=== PATIENT | female | born 1985 | race Caucasian/White ===

== ENCOUNTER 2016-07-28 00:18 | Inpatient (IN) | payer OTHER ==
[2016-07-28] MEDS ORDERED: Ampicillin 2 GM in Sodium Chloride 0.9% 100 ML IV ONE (01:05)
[2016-07-28] MEDS ORDERED: Sodium Chloride 0.9% 10 ML Syringe FLUSH PRN (01:05)
[2016-07-28] MEDS ORDERED: Lactated Ringers 1,000 ML IV SCH (01:15)
[2016-07-28] MEDS ORDERED: Oxytocin/Lactated Ringers 10 UNIT/1,000 ML BAG IV SCH (01:15)
[2016-07-28] MEDS ORDERED: Oxytocin/Lactated Ringers 10 UNIT/1,000 ML BAG IV ONE (01:16)
[2016-07-28] MEDS ORDERED: Lidocaine 1% 50 ML MDV ONE (02:25)
[2016-07-28] MEDS ORDERED: Lidocaine 1% 20 ML MDV INJECT ONE (02:32)
--- NOTE | 2016-07-28 02:44 | PCM.LDHP ---
L&D History of Present Illness - General Date of Service: 07/28/16 Admit Problem/Dx: Patient Status Order with Admit Dx/Problem 07/28/16 01:05 Patient Status [ADT] Routine Admission Diagnosis/Problem Admission Diagnosis/Problem Normal labor Source of Information: Patient History Limitations: Reports: No limitations - History of Present Illness Introduction:: Patient is a 31 y/o at 40 4/7 wks who presents this morning in early labor. Contractions started about 8 pm, but became intense once she reached the hospital. No other concerns. 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 : 3 Para: 1 LMP (Approximate): Social & Family History - Tobacco Use Smoking Status *Q: Never Smoker Second Hand Smoke Exposure: No - Alcohol Use Alcohol Use History: No Days Per Week of Alcohol Use: 0 - Recreational Drug Use Recreational Drug Use: No H&P Review of Systems - Review of Systems: Review Of Systems: See Below General: Reports: no symptoms Pulmonary: Reports: No Symptoms Cardiovascular: Reports: no symptoms Gastrointestinal: Reports: No symptoms Genitourinary: Reports: no symptoms Musculoskeletal: Reports: no symptoms Psychiatric: Reports: no symptoms L&D Exam - Exam Exam: See Below - Vital Signs Weight: 79.832 kg - OB Specific Contraction Intensity: Moderate to Strong movement: active heart tones: present heart tones per min: 135 Heart Rate (FHR) Variability: Moderate (6-25 bmp) Presentation: Vertex - Sykes Score Sykes Score Cervix Position: Midposition Sykes Score Consistency: Soft Sykes Score Effacement: >80% Sykes Score Dilation: > 5 cm Sykes Score 's Station: -1 ,0 Sykes Score Total: 11 - Exam General: alert, oriented, cooperative Lungs: Clear to auscultation, Normal respiratory effort Cardiovascular: regular rate, regular rhythm Abdomen: soft Genitourinary: Normal external exam Extremities: normal inspection Skin: warm, dry, intact - Patient Data Lab Results last 24 hrs: Laboratory Results - last 24 hr 07/28/16 07/28/16 Range/Units 00:55 00:55 WBC 11.65 H (3.98-10.04) K/mm3 RBC 4.19 (3.98-5.22) M/mm3 Hgb 11.3 (11.2-15.7) gm/L Hct 35.5 (34.1-44.9) % MCV 84.7 (79.4-94.8) fl MCH 27.0 (25.6-32.2) pg MCHC 31.8 L (32.2-35.5) g/dl RDW Std Deviation 45.0 (36.4-46.3) fL Plt Count 195 (182-369) K/mm3 MPV 10.5 (9.4-12.3) fl Neut % (Auto) 76.5 H (34.0-71.1) % Lymph % (Auto) 16.7 L (19.3-51.7) % Hodgeman % (Auto) 5.6 (4.7-12.5) % Eos % (Auto) 0.6 L (0.7-5.8) Baso % (Auto) 0.2 (0.1-1.2) % Neut # (Auto) 8.92 H (1.56-6.13) K/mm3 Lymph # (Auto) 1.94 (1.18-3.74) K/mm3 Hodgeman # (Auto) 0.65 H (0.24-0.36) K/mm3 Eos # (Auto) 0.07 (0.04-0.36) K/mm3 Baso # (Auto) 0.02 (0.01-0.08) K/mm3 Blood Type A POSITIVE Gel Antibody Screen Negative Result Diagrams: 07/28/16 00:55 - Problem List (1) 40 weeks gestation of SNOMED Code(s): 82069504 ICD Code: Z3A.40 - 40 WEEKS GESTATION OF Status: Acute Current Visit: Yes (2) GBS (group B Streptococcus carrier), +RV culture, currently SNOMED Code(s): 63614957, 725752037 ICD Code: O99.820 - STREPTOCOCCUS B CARRIER STATE COMPLICATING Status: Acute Current Visit: Yes (3) Normal labor SNOMED Code(s): 35974765 ICD Code: O80 - ENCOUNTER FOR FULL-TERM UNCOMPLICATED DELIVERY; Z37.9 - OUTCOME OF DELIVERY, UNSPECIFIED Status: Acute Current Visit: Yes Problem List Initiated/Reviewed/Updated: Yes Orders Last 24hrs: Active Orders 24 hr Category Date Time Status Patient Status Manage Transfer [TRANSFER] Routine ADT 07/28/16 02:42 Ordered Patient Status [ADT] Routine ADT 07/28/16 01:05 Active Activity as Tolerated [RC] PFP Care 07/28/16 01:05 Active Communication Order [RC] ASDIRECTED Care 07/28/16 01:05 Active Heart Tones [RC] ASDIRECTED Care 07/28/16 01:06 Active Notify Provider [RC] PFP Care 07/28/16 01:05 Active Notify Provider [RC] PRN Care 07/28/16 01:05 Active Peripheral IV Care [RC] . DIRECTED Care 07/28/16 01:06 Active Vital Signs [RC] PER UNIT ROUTINE Care 07/28/16 01:05 Active PATIENT RETYPE [BBK] Stat Lab 07/28/16 00:55 Results TYPE AND SCREEN [BBK] Stat Lab 07/28/16 00:55 Results Ampicillin 1 gm Med 07/28/16 05:00 Active Sodium Chloride 0.9% [Normal Saline] 100 ml IV Q4H Lactated Ringers [Ringers, Lactated] 1,000 ml Med 07/28/16 01:15 Active IV ASDIRECTED Oxytocin/Lactated Ringers [Pitocin in LR 10 Units/1,000 Med 07/28/16 01:15 Active ML] 10 unit in 1,000 ml IV ASDIRECTED Sodium Chloride 0.9% [Saline Flush] Med 07/28/16 01:05 Active 10 ml FLUSH ASDIRECTED PRN Electronic Heart Tones Ext w TOCO [WOMSER] Oth 07/28/16 01:05 Ordered Routine Electronic Heart Tones Internal [WOMSER] Per Unit Oth 07/28/16 01:05 Ordered Routine Peripheral IV Insertion Adult [OM.PC] Routine Oth 07/28/16 01:05 Ordered Resuscitation Status Routine Resus Stat 07/28/16 01:05 Ordered Medication Orders Ampicillin Sodium 1 gm/ Sodium (Chloride) 100 mls @ 200 mls/hr IV Q4H KIMBERLI Lactated Ringer's (Ringers, Lactated) 1,000 mls @ 100 mls/hr IV ASDIRECTED KIMBER[facility] Oxytocin/Lactated Ringer's (Pitocin In Lr 10 Units/1,000 Ml) 10 unit in 1,000 mls @ 500 mls/hr IV ASDIRECTED KIMBERLI Last Admin: 07/28/16 02:24 Dose: 500 mls/hr Sodium Chloride (Saline Flush) 10 ml FLUSH ASDIRECTED PRN PRN Reason: Keep Vein Open Assessment/Plan Comment:: 31 y/o at 40 4/7 wks presents in labor * CBC and T&S * Ampicillin for GBS+ status * Pain management per patient preference * Anticipate
--- NOTE | 2016-07-28 02:44 | PCM.DEL ---
L & D Note - General Info Date of Service: 07/28/16 - Delivery Note Labor: spontaneous Delivery Outcome: Livebirth Delivery Method: Spontaneous Vaginal Delivery Delivery Mode: Spontaneous Presentation: Right Occiput Anterior (MATEO) Nuchal cord: none Anesthesia Type: None Anesthetic: lidocaine (xylocaine) 1% plain Local anesthetic volume: 5cc Amniotic Fluid Description: Clear Episiotomy Type: None Laceration: 2nd degree, perineal Suture type: vicryl Suture size: 2-0 Placenta: intact, spontaneous Cord: 3 vessels Estimated blood loss: 300 Resuscitation needed: Yes [place]: bulb syringe, stimulated, warmed, blanket used Score 1 min: 8 Score 5 min: 9 Delivery Comments (Free Text/Narrative):: Patient found to be complete and began pushing. With maternal pushing effort head delivered from an MATEO presentation. No nuchal cord present. With gentle downward traction the shoulders and body delivered. Infant placed on maternal abdomen. Cord clamped and cut. Cord blood obtained. Placenta allowed time to separate and then spontaneously expelled. Inspection of the perineum showed a 2nd degree laceration which was repaired with a 2-0 vicryl in the typical fashion. - Patient Data Weight - most recent: 79.832 kg Lab Results last 24 hrs: Laboratory Results - last 24 hr 07/28/16 07/28/16 Range/Units 00:55 00:55 WBC 11.65 H (3.98-10.04) K/mm3 RBC 4.19 (3.98-5.22) M/mm3 Hgb 11.3 (11.2-15.7) gm/L Hct 35.5 (34.1-44.9) % MCV 84.7 (79.4-94.8) fl MCH 27.0 (25.6-32.2) pg MCHC 31.8 L (32.2-35.5) g/dl RDW Std Deviation 45.0 (36.4-46.3) fL Plt Count 195 (182-369) K/mm3 MPV 10.5 (9.4-12.3) fl Neut % (Auto) 76.5 H (34.0-71.1) % Lymph % (Auto) 16.7 L (19.3-51.7) % Andrews % (Auto) 5.6 (4.7-12.5) % Eos % (Auto) 0.6 L (0.7-5.8) Baso % (Auto) 0.2 (0.1-1.2) % Neut # (Auto) 8.92 H (1.56-6.13) K/mm3 Lymph # (Auto) 1.94 (1.18-3.74) K/mm3 Andrews # (Auto) 0.65 H (0.24-0.36) K/mm3 Eos # (Auto) 0.07 (0.04-0.36) K/mm3 Baso # (Auto) 0.02 (0.01-0.08) K/mm3 Blood Type A POSITIVE Gel Antibody Screen Negative Med Orders - Current: Current Medications Ampicillin Sodium 1 gm/ Sodium (Chloride) 100 mls @ 200 mls/hr IV Q4H KIMBERLI Lactated Ringer's (Ringers, Lactated) 1,000 mls @ 100 mls/hr IV ASDIRECTED KIMBERLI Oxytocin/Lactated Ringer's (Pitocin In Lr 10 Units/1,000 Ml) 10 unit in 1,000 mls @ 500 mls/hr IV ASDIRECTED KIMBERLI Last Admin: 07/28/16 02:24 Dose: 500 mls/hr Sodium Chloride (Saline Flush) 10 ml FLUSH ASDIRECTED PRN PRN Reason: Keep Vein Open Discontinued Medications Ampicillin Sodium 2 gm/ Sodium (Chloride) 100 mls @ 200 mls/hr IV STAT ONE Stop: 07/28/16 01:34 Last Admin: 07/28/16 01:18 Dose: 200 mls/hr Oxytocin/Lactated Ringer's (Pitocin In Lr 10 Units/1,000 Ml) Confirm Administered Dose 10 unit in 1,000 mls @ as directed IV .STK-MED ONE Stop: 07/28/16 01:17 Lidocaine HCl (Xylocaine 1%) Confirm Administered Dose 50 ml .ROUTE .STK-MED ONE Stop: 07/28/16 02:26 Last Admin: 07/28/16 02:43 Dose: Not Given Lidocaine HCl (Xylocaine 1%) 20 ml INJECT ONETIME ONE Stop: 07/28/16 02:33 Last Admin: 07/28/16 02:44 Dose: 20 ml - Problem List & Annotations (1) 40 weeks gestation of SNOMED Code(s): 25314705 Code(s): Z3A.40 - 40 WEEKS GESTATION OF Status: Acute Current Visit: Yes (2) GBS (group B Streptococcus carrier), +RV culture, currently SNOMED Code(s): 21099174, 840820554 Code(s): O99.820 - STREPTOCOCCUS B CARRIER STATE COMPLICATING Status: Acute Current Visit: Yes (3) Normal labor SNOMED Code(s): 02940332 Code(s): O80 - ENCOUNTER FOR FULL-TERM UNCOMPLICATED DELIVERY; Z37.9 - OUTCOME OF DELIVERY, UNSPECIFIED Status: Acute Current Visit: Yes (4) Vaginal delivery SNOMED Code(s): 221401076 Code(s): O80 - ENCOUNTER FOR FULL-TERM UNCOMPLICATED DELIVERY Status: Acute Current Visit: No - Problem List Review Problem List Initiated/Reviewed/Updated: Yes - My Orders Last 24 Hours: My Active Orders 07/28/16 00:55 PATIENT RETYPE [BBK] Stat TYPE AND SCREEN [BBK] Stat 07/28/16 01:05 Patient Status [ADT] Routine Activity as Tolerated [RC] PFP Communication Order [RC] ASDIRECTED Notify Provider [RC] PFP Notify Provider [RC] PRN Vital Signs [RC] PER UNIT ROUTINE Sodium Chloride 0.9% [Saline Flush] 10 ml FLUSH ASDIRECTED PRN Electronic Heart Tones Ext w TOCO [WOMSER] Routine Electronic Heart Tones Internal [WOMSER] Per Unit Routine Peripheral IV Insertion Adult [OM.PC] Routine Resuscitation Status Routine 07/28/16 01:06 Heart Tones [RC] ASDIRECTED Peripheral IV Care [RC] . DIRECTED 07/28/16 01:15 Lactated Ringers [Ringers, Lactated] 1,000 ml IV ASDIRECTED Oxytocin/Lactated Ringers [Pitocin in LR 10 Units/1,000 ML] 10 unit in 1,000 ml IV ASDIRECTED 07/28/16 02:42 Patient Status Manage Transfer [TRANSFER] Routine 07/28/16 05:00 Ampicillin 1 gm Sodium Chloride 0.9% [Normal Saline] 100 ml IV Q4H - Assessment Assessment:: 31 y/o G3 now P2012 PPD#0 from at 40 4/7 wks - Plan Plan:: S/p * Routine cares * Encourage breast feeding * Discharge home in 1-2 days
[2016-07-28] MEDS ORDERED: Lanolin 100% Cream 7 GM Tube TOP PRN (02:57)
[2016-07-28] MEDS ORDERED: Docusate Sodium 100 MG Cap PO PRN (02:57)
[2016-07-28] MEDS ORDERED: Benzocaine/Menthol 20%-0.5% Spray 56 GM Canister TOP PRN (02:57)
[2016-07-28] MEDS ORDERED: Acetaminophen 325 MG Tab PO PRN (02:57)
[2016-07-28] MEDS ORDERED: Witch Hazel Medicated Pads 100/Jar TOP PRN (02:57)
[2016-07-28] MEDS ORDERED: Ampicillin 1 GM in Sodium Chloride 0.9% 100 ML IV SCH (05:00)
[2016-07-28] MEDS: Ibuprofen 600 MG Tab PO PRN ×2 (07:43→20:45)
--- NOTE | 2016-07-29 06:12 | PCM.PNPP ---
- General Info Date of Service: 07/29/16 Functional Status: Reports: pain controlled - Review of Systems General: Reports: No Symptoms HEENT: Reports: no symptoms Pulmonary: Reports: no symptoms Cardiovascular: Reports: No Symptoms Gastrointestinal: Reports: No symptoms Genitourinary: Reports: no symptoms Musculoskeletal: Reports: no symptoms Skin: Reports: no symptoms Neurological: Reports: No Symptoms Psychiatric: Reports: no symptoms - General Info Date of Service: 07/29/16 - Patient Data Vital Signs - most recent: Last Vital Signs Temp 36.7 C 07/29/16 05:04 Pulse 67 07/29/16 05:04 Resp 16 07/29/16 05:04 BP 118/78 07/29/16 05:04 Pulse Ox 96 07/29/16 05:04 Weight - most recent: 79.832 kg I&O - last 24 hours: Intake & Output 07/28/16 07/28/16 07/29/16 14:59 22:59 06:59 Intake Total 240 Balance 240 Lab Results - last 24 hrs: Laboratory Results - last 24 hr 07/28/16 Range/Units 00:55 Blood Type A POSITIVE Gel Antibody Screen Negative Med Orders - Current: Current Medications Acetaminophen (Tylenol) 650 mg PO Q4H PRN PRN Reason: mild pain or fever Last Admin: 07/28/16 14:43 Dose: 650 mg Benzocaine/Menthol (Dermoplast Pain Relief [place]) 0 gm TOP ASDIRECTED PRN PRN Reason: Perineal Comfort Measure Last Admin: 07/28/16 04:44 Dose: 1 can Docusate Sodium (Colace) 100 mg PO BID PRN PRN Reason: Constipation Emollient Ointment (Lansinoh Hpa) 0 gm TOP ASDIRECTED PRN PRN Reason: Sore Nipples Last Admin: 07/28/16 11:55 Dose: 1 tube Ibuprofen (Motrin) 600 mg PO Q4H PRN PRN Reason: Mild pain or fever Last Admin: 07/28/16 20:45 Dose: 600 mg Witch Lalitha (Tucks) 1 pad TOP ASDIRECTED PRN PRN Reason: Hemorrhoid pain Last Admin: 07/28/16 04:45 Dose: 1 container Discontinued Medications Ampicillin Sodium 2 gm/ Sodium (Chloride) 100 mls @ 200 mls/hr IV STAT ONE Stop: 07/28/16 01:34 Last Admin: 07/28/16 01:18 Dose: 200 mls/hr Ampicillin Sodium 1 gm/ Sodium (Chloride) 100 mls @ 200 mls/hr IV Q4H [facility] Lactated Ringer's (Ringers, Lactated) 1,000 mls @ 100 mls/hr IV ASDIRECTED [facility] Oxytocin/Lactated Ringer's (Pitocin In Lr 10 Units/1,000 Ml) 10 unit in 1,000 mls @ 500 mls/hr IV ASDIRECTED [facility] Last Admin: 07/28/16 02:24 Dose: 500 mls/hr Oxytocin/Lactated Ringer's (Pitocin In Lr 10 Units/1,000 Ml) Confirm Administered Dose 10 unit in 1,000 mls @ as directed IV .STK-MED ONE Stop: 07/28/16 01:17 Last Admin: 07/28/16 03:07 Dose: Not Given Lidocaine HCl (Xylocaine 1%) Confirm Administered Dose 50 ml .ROUTE .STK-MED ONE Stop: 07/28/16 02:26 Last Admin: 07/28/16 02:43 Dose: Not Given Lidocaine HCl (Xylocaine 1%) 20 ml INJECT ONETIME ONE Stop: 07/28/16 02:33 Last Admin: 07/28/16 02:44 Dose: 20 ml Sodium Chloride (Saline Flush) 10 ml FLUSH ASDIRECTED PRN PRN Reason: Keep Vein Open - Interaction Infant Disposition, : to Nursery Support Person: - Recovery Exam Fundal Tone: Firm Fundal Level: 2 Fingerbreadths Below Umbilicus Fundal Placement: Midline Lochia Amount: Small Lochia Color: Rubra/Red Perineum Description: Intact, Minimal Bruising/Swelling Other Perinuem Description: 2nd deg lac with repair using tucks/dermaplast bruno care per self Episiotomy/Laceration: Approximated Bladder Status: Voiding Urinary Elimination: Voided - Exam General: alert, oriented HEENT: Pupils equal Neck: supple Lungs: Clear to auscultation, Normal respiratory effort Cardiovascular: Regular Rate, Regular Rhythm Abdomen: bowel sounds present, soft, no tenderness, no distension Extremities: no edema Skin: warm, dry, intact Wound/Incisions: healing well Neurological: no new focal deficit Psy/Mental Status: alert, normal affect, normal mood - Problem List Review Problem List Initiated/Reviewed/Updated: Yes - Assessment Assessment:: 31 y/o G3 now P2012 PPD#1 from at 40 4/7 wks - Plan Plan:: S/p * Routine cares * Encourage breast feeding * Discharge home in 1-2 days * doing well * discharge tomorrow (Peds would like baby to stay 48 hours)
[2016-07-29] MEDS: Ibuprofen 600 MG Tab PO PRN (15:26)
[2016-07-30 04:17] VITALS: BP 104/65
[2016-07-30] MEDS: Ibuprofen 600 MG Tab PO PRN (06:21)
--- NOTE | 2016-07-30 06:46 | PCM.DCSUM1 ---
Discharge Summary - Discharge Data Discharge Date: 07/30/16 Discharge Disposition: Home, Self-Care 01 Condition: Good - Patient Summary/Data Hospital Course: Admitted for labor. Discharged PPD2. - Patient Instructions Diet: Usual Diet as Tolerated Activity: No Strenuous Activities Activity, Other: pelvic rest Driving: May Drive Today Showering/Bathing: May Shower Notify Provider of: Fever, Increased Pain, Swelling and Redness, Nausea and/or Vomiting - Discharge Plan Home Medications: Home Meds Pnv No.122/Iron/Folic Acid [ Multi Tablet] 1 each PO DAILY 07/28/16 [ History] Referrals: Lucy Boles MD [Primary Care Provider] - (6 weeks) - Discharge Summary/Plan Comment DC Time >30 min.: No - General Info Date of Service: 07/30/16 Functional Status: Reports: pain controlled - Review of Systems General: Reports: No Symptoms HEENT: Reports: no symptoms Pulmonary: Reports: no symptoms Cardiovascular: Reports: No Symptoms Gastrointestinal: Reports: No symptoms Genitourinary: Reports: no symptoms Musculoskeletal: Reports: no symptoms Skin: Reports: no symptoms Neurological: Reports: No Symptoms Psychiatric: Reports: no symptoms - Patient Data Vitals - Most Recent: Last Vital Signs Temp 36.7 C 07/30/16 03:59 Pulse 73 07/30/16 03:59 Resp 16 07/30/16 03:59 BP 104/65 07/30/16 03:59 Pulse Ox 98 07/30/16 03:59 Weight - Most Recent: 79.832 kg I&O - Last 24 hours: Intake & Output 07/29/16 07/29/16 07/30/16 14:59 22:59 06:59 Intake Total 360 Balance 360 Med Orders - Current: Current Medications Acetaminophen (Tylenol) 650 mg PO Q4H PRN PRN Reason: mild pain or fever Last Admin: 07/28/16 14:43 Dose: 650 mg Benzocaine/Menthol (Dermoplast Pain Relief [place]) 0 gm TOP ASDIRECTED PRN PRN Reason: Perineal Comfort Measure Last Admin: 07/28/16 04:44 Dose: 1 can Docusate Sodium (Colace) 100 mg PO BID PRN PRN Reason: Constipation Emollient Ointment (Lansinoh Hpa) 0 gm TOP ASDIRECTED PRN PRN Reason: Sore Nipples Last Admin: 07/28/16 11:55 Dose: 1 tube Ibuprofen (Motrin) 600 mg PO Q4H PRN PRN Reason: Mild pain or fever Last Admin: 07/30/16 06:21 Dose: 600 mg Witch Lalitha (Tucks) 1 pad TOP ASDIRECTED PRN PRN Reason: Hemorrhoid pain Last Admin: 07/28/16 04:45 Dose: 1 container Discontinued Medications Ampicillin Sodium 2 gm/ Sodium (Chloride) 100 mls @ 200 mls/hr IV STAT ONE Stop: 07/28/16 01:34 Last Admin: 07/28/16 01:18 Dose: 200 mls/hr Ampicillin Sodium 1 gm/ Sodium (Chloride) 100 mls @ 200 mls/hr IV Q4H [facility]IMBER[facility] Lactated Ringer's (Ringers, Lactated) 1,000 mls @ 100 mls/hr IV ASDIRECTED [facility]IMBER[facility] Oxytocin/Lactated Ringer's (Pitocin In Lr 10 Units/1,000 Ml) 10 unit in 1,000 mls @ 500 mls/hr IV ASDIRECTED KIMBERLI Last Admin: 07/28/16 02:24 Dose: 500 mls/hr Oxytocin/Lactated Ringer's (Pitocin In Lr 10 Units/1,000 Ml) Confirm Administered Dose 10 unit in 1,000 mls @ as directed IV .STK-MED ONE Stop: 07/28/16 01:17 Last Admin: 07/28/16 03:07 Dose: Not Given Lidocaine HCl (Xylocaine 1%) Confirm Administered Dose 50 ml .ROUTE .STK-MED ONE Stop: 07/28/16 02:26 Last Admin: 07/28/16 02:43 Dose: Not Given Lidocaine HCl (Xylocaine 1%) 20 ml INJECT ONETIME ONE Stop: 07/28/16 02:33 Last Admin: 07/28/16 02:44 Dose: 20 ml Sodium Chloride (Saline Flush) 10 ml FLUSH ASDIRECTED PRN PRN Reason: Keep Vein Open - Exam General: Reports: alert, oriented HEENT: Reports: Pupils equal, Pupils reactive, EOMI, Mucous membr. moist/pink Neck: Reports: supple Lungs: Reports: Clear to auscultation, Normal respiratory effort Cardiovascular: Reports: Regular Rate, Regular Rhythm Abdomen: Reports: bowel sounds present, soft, no tenderness, no distension (Female) Exam: Normal external exam, Normal speculum exam, Normal bimanual exam Back Exam: Reports: normal inspection, full range of motion Extremities: Reports: no edema, normal pulses Skin: Reports: warm, dry, intact Wound/Incisions: Reports: healing well Neurological: Reports: no new focal deficit Psy/Mental Status: Reports: alert, normal affect, normal mood *Q Meaningful Use (DIS) - VTE *Q VTE Criteria *Q: - Stroke *Q Stroke Criteria *Q: - AMI *Q AMI Criteria *Q:
== END 2016-07-30 08:35 | disposition home or self-care (01) | DRG 775 ==
LOC: JD.OB 00:18 → JD.OBCHECK 00:18 → JD.OB 01:05 → OBSVTOIN 02:20
PROVIDERS: ADMIT Obstetrics & Gynecology; ATTEND Obstetrics & Gynecology
PROC: 10E0XZZ Delivery of Products of Conception, External Approach (ICD-10-PCS; principal; 2016-07-28)
PROC: 0KQM0ZZ Repair Perineum Muscle, Open Approach (ICD-10-PCS; 2016-07-28)
DX: O99.824 Streptococcus B carrier state complicating childbirth (principal); O70.1 Second degree perineal laceration during delivery; Z3A.41 41 weeks gestation of pregnancy; Z37.0 Single live birth
CPT/HCPCS: 36415; 85025; 86850; 86900; 86901; A9270-GY; J0290; J2590; J7030

== ENCOUNTER 2016-09-12 17:10 | Emergency (ER) | payer OTHER ==
[2016-09-12 17:33] VITALS: BP 135/77
[2016-09-12] MEDS ORDERED: Lidocaine 1% 50 ML MDV INJECT ONE (17:35)
--- NOTE | 2016-09-12 17:41 | EDM.PDOC ---
ED HPI GENERAL MEDICAL PROBLEM - General Chief Complaint: Laceration Stated Complaint: R HAND FINGER LAC Time Seen by Provider: 09/12/16 17:32 Source of Information: Reports: Patient History Limitations: Reports: No Limitations - History of Present Illness INITIAL COMMENTS - FREE TEXT/NARRATIVE: The patient was mowing the lawn with a push mower and she ran into the tin roof of their chicken coop and cut her right 3rd, 4th and 5th digits just above the DIP joint. She is right handed and her tetanus is up to date. She cannot straiten the tip of the 5th right finger. She has no other injuries. 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 ASSISTANT: Reports: Dressing(s) Right 5-Little toe Pain Score (Numeric/FACES): 4 - Related Data Allergies Allergy/AdvReac Type Severity Reaction Status Date / Time No Known Allergies Allergy Verified 09/12/16 17:33 Home Meds: Home Meds Pnv No.122/Iron/Folic Acid [ Multi Tablet] 1 each PO DAILY 07/28/16 [ History] Past Medical History - Past Health History Medical/Surgical History: Denies 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: , 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 Social & Family History - Family History Family Medical History: Noncontributory - Tobacco Use Smoking Status *Q: Never Smoker Second Hand Smoke Exposure: No - Caffeine Use Caffeine Use: Reports: Coffee Other Caffeine Use: Half-caff daily - Alcohol Use Days Per Week of Alcohol Use: 0 - Recreational Drug Use Recreational Drug Use: No ED ROS GENERAL - Review of Systems Review Of Systems: See Below Constitutional: Reports: No Symptoms HEENT: Reports: No Symptoms Respiratory: Reports: No Symptoms Cardiovascular: Reports: No Symptoms Endocrine: Reports: No Symptoms GI/Abdominal: Reports: No Symptoms : Reports: No Symptoms Musculoskeletal: Reports: Other (Lacerations to the 3rd, 4th and 5th digits on the right hand) Skin: Reports: No Symptoms Neurological: Reports: No Symptoms ED EXAM, SKIN/RASH Exam: See Below Exam Limited By: No Limitations General Appearance: Alert, No Apparent Distress Ears: Normal External Exam Nose: Normal Inspection Head: Atraumatic, Normocephalic Respiratory/Chest: No Respiratory Distress Extremities: Other (1cm laceration to the 3rd finger on the right hand over the dorsal aspect near the PIP joint. There is a 1cm laceration to the 4th digit near the PIP joint. This is superficial. She has a laceration to the 5th finger of the right hand between the DIP and PIP joints. There is passive flexion at the DIP joint and she cannot straiten the finger. She has good sensation and capillary refill in all 3 fingers.) ED SKIN PROCEDURES - Laceration/Wound Repair Right Finger Lac/wound length in cm: 1 Appearance: Subcutaneous, Linear, Clean Distal NVT: neuro & vascular intact, other (extensor tendon laceration) Anesthetic Type: digital Local anesthesia - Lidocaine (Xylocaine): 1% plain Skin prep: saline Exploration/Debridement/Repair: wound explored, in a bloodless field, explored to base Closed with: sutures Suture size: 4-0 # of sutures: 2 Suture type: nylon, interrupted Tetanus status addressed: Yes Complications: No Course - Vital Signs Last Recorded V/S: Last Vital Signs Temp 98.0 F 09/12/16 17:25 Pulse 55 L 09/12/16 17:25 Resp 16 09/12/16 17:25 BP 135/77 09/12/16 17:25 Pulse Ox 96 09/12/16 17:25 - Orders/Labs/Meds Meds: Medications Discontinued Medications Generic Name Dose Route Start Last Admin Trade Name Biq PRN Reason Stop Dose Admin Lidocaine HCl 50 ml 09/12/16 17:35 09/12/16 17:57 Xylocaine 1% INJECT 09/12/16 17:36 50 ml ONETIME ONE Administration - Re-Assessments/Exams Free Text/Narrative Re-Assessment/Exam: 09/12/16 18:48 I was able to use adhesive on one of the lacerations. The 5th digit she has a laceration and extensor tendon laceration. I have sutured it closed and I put her in a splint for mallet fingers. I will have her follow up with Dr Huggins. Departure - Departure Time of Disposition: 18:50 Disposition: Home, Self-Care 01 Condition: good Clinical Impression: Laceration of extensor muscle, fascia and tendon of right little finger at forearm level, initial encounter Laceration of finger of right hand Qualifiers: Encounter type: initial encounter Qualified Code(s): S61.219A - Laceration without foreign body of unspecified finger without damage to nail, initial encounter - Discharge Information Referrals: Tai Huggins MD [Physician] - 1 Week Forms: ED Department Discharge Additional Instructions: Soak your finger in warm soapy water 2 times per day and apply antibiotic ointment after. Have the sutures removed in 1 week[address] Follow up with Dr Huggins within 1 week. Leave the splint on as much as you can. Please return if you are worse. Look for any sign of infection such as redness, swelling, pain or drainage.
== END 2016-09-12 19:13 | disposition home or self-care (01) ==
LOC: JD.ED 17:10
DX: S61.212A Laceration without foreign body of right middle finger without damage to nail, initial encounter (principal); S56.427A Laceration of extensor muscle, fascia and tendon of right little finger at forearm level, initial encounter; S61.214A Laceration without foreign body of right ring finger without damage to nail, initial encounter; W45.8XXA Other foreign body or object entering through skin, initial encounter
CPT/HCPCS: 12001; 12002; 99283-25